=== PATIENT | male | born 1955 | race African-American/Black ===

== ENCOUNTER 2017-09-13 14:16 | Emergency (ER) | payer SELFPAY ==
[~2017-09-13] VITALS: Ht 172.7 cm; Wt 60.7 kg
[2017-09-13 14:18] VITALS: Ht 172.7 cm; Wt 60.7 kg
[2017-09-13] MEDS ORDERED: IBUPROFEN 600 MG TAB PO ONE (17:30)
--- NOTE | 2017-09-13 19:14 | ERD ---
ER Documentation Chief Complaint Chief Complaint RIGHT THUMB INJURY HPI Patient is a 61-year-old male who presents ED for concerns of right thumb pain 1 week. Patient states approximately 1 week ago he fell and injured his thumb on the curb. Patient states today while getting off the bus he hit his thumb again on the bus rail. Patient states the pain is intermittent in nature. Patient does have swelling base of his thumb. Patient reports numbness in his thumb, however he is able to move it around. Patient denies any fevers or chills.. Patient is right-hand dominant. Patient denies any previous injuries to the affected extremity. ROS All systems reviewed and are negative except as per history of present illness. Medications Home Meds No Active Prescriptions or Reported Meds Allergies Allergies: Coded Allergies: No Known Allergy (Unverified , 09/13/17) PMhx/Soc History of Surgery: No Anesthesia Reaction: No Hx Neurological Disorder: No Hx Respiratory Disorders: No Hx Cardiac Disorders: No Hx Psychiatric Problems: No Hx Miscellaneous Medical Probl: No Hx Alcohol Use: Yes Hx Substance Use: No Hx Tobacco Use: No Smoking Status: Current some day smoker Physical Exam Vitals Vital Signs Date Time Temp Pulse Resp B/P Pulse Ox O2 Delivery O2 Flow Rate FiO2 09/13/17 14:18 98.1 80 17 125/76 100 Physical Exam GENERAL: Well-developed, well-nourished male. Appears in no acute distress. HEAD: Normocephalic, atraumatic. EYES: Pupils are equally reactive bilaterally. EOMs grossly intact. No conjunctival erythema. NECK: Supple. No meningismus. Normal range of motion of the neck. LUNG: Clear to auscultation bilaterally. HEART: Regular rate and rhythm. No murmurs, rubs or gallops. EXTREMITIES: Equal pulses in bilateral upper extremities. No cyanosis or discoloration noted. NEUROLOGIC: Alert and oriented. Moving all four extremities without any difficulty. Normal speech. Steady gait. SKIN: Normal color. Warm and dry. No rashes or lesions. RIGHT HAND: Swelling noted at the base of the right thumb. Areas tender to palpation. No ecchymosis noted. Skin is intact. Full range of motion of the shoulder elbow. Patient able to pronate and supinate without any difficulty. Tender to palpation over the base of the thumb. Difficulty with fully flexing thumb. Normal range of motion of digits 2 through 4. Sensation intact to light touch. Neurovascularly intact. (Able to give thumbs up, make an ok sign, cross digits 2 and 3, thumb to pinky opposition. 2+ RP.) No snuffbox tenderness. Results 24 hrs Current Medications Medications (Trade) Dose Ordered Sig/Atif Route PRN Reason Start Time Stop Time Status Last Admin Dose Admin Ibuprofen (Motrin) 600 mg ONCE ONCE PO 09/13/17 17:30 09/13/17 17:31 DC 09/13/17 17:28 Procedures/MDM ED COURSE: The patient was stable throughout ED course. I kept the patient and/or family informed of laboratory and diagnostic imaging results throughout the ED course. MEDICATIONS GIVEN: Ibuprofen Patient tolerated medication well with no adverse reactions. MEDICAL DECISION MAKING: This is a 61-year-old male who presents with right thumb pain 1 week. Patient initially injured his thumb 1 week ago and then reinjured it today while getting off the bus after hitting it on metal railing. Vital signs were reviewed. Patient was afebrile. Patient was given ibuprofen for his pain. X- ray imaging was ordered. While awaiting xray imaging, patient became angry and agitated that he had been waiting for over 30 minutes for imaging studies to be obtained. Myself and nursing staff explained to the patient that his x-rays would be taken as soon as possible. Xray staff was contacted and asked to expedite order. Patient continued to be argumentative and upset, stating that he wished to speak to a machinist supervisor outside. ED charge nurse was contacted to speak to the patient. Patient was noted to have eloped prior to charge nurse speaking with patient. Patient eloped without completing xray imaging, receiving splint or discharge paperwork. Patient was stable throughout ED course and prior to his elopement. Given that patient eloped, I am unable to rule out acute fractures, dislocations or injuries. Departure Diagnosis: Primary Impression: Pain of right thumb Condition: ARIS Torres PA-C Sep 13, 2017 19:14 specialist for further workup and imaging if the pain persists. I have instructed the patient to promptly return to the ER for any new or worsening symptoms including increased pain, swelling, redness, warmth or fever. The patient and/or family expressed understanding of and agreement with this plan. All questions were answered. Home care instructions were provided. Departure Diagnosis: Primary Impression: Pain of right thumb Condition: ARIS Torres PA-C Sep 13, 2017 19:14
== END 2017-09-13 19:59 | disposition left against medical advice (07) ==
LOC: FTE 14:16
DX: S69.91XA Unspecified injury of right wrist, hand and finger(s), initial encounter (principal); F17.210 Nicotine dependence, cigarettes, uncomplicated; W22.8XXA Striking against or struck by other objects, initial encounter; Y92.811 Bus as the place of occurrence of the external cause
CPT/HCPCS: 99282